=== PATIENT | female | born 1945 | race Caucasian/White ===

== ENCOUNTER 2016-12-13 05:43 | Emergency (ER) | payer MEDICARE ==
--- NOTE | 2016-12-13 06:08 | ERNOTE ---
ER Female HPI Stated Complaint: CAN'T URINATE, BLEEDING Presenting Symptoms: pelvic pain, dysuria Time Seen by Provider: 12/13/16 05:58 Source: patient, RN notes reviewed Exam Limitations: no limitations Immunizations: IMMUNIZATION HX Immunizations Up to Date Yes Allergies/Adverse Reactions: Allergies No Known Allergies Allergy (Verified 12/13/16 05:55) Home Medications: HOME MEDICATIONS Hydroxychloroquine Sulfate [Plaquenil] 400 mg PO DAILY 09/29/12 [Last Taken 10/09] Methotrexate Sodium [Methotrexate] 12.5 mg PO TU 10/03/12 [Last Taken 10/03/12] Venlafaxine HCl [Effexor Xr] 150 mg PO DAILY 01/11/14 [Last Taken Unknown] Warfarin Sodium [Coumadin] 6 mg PO DAILY 01/11/14 [Last Taken Unknown] Tiotropium Dum[place] [Spiriva] 1 cap IH DAILY 09/28/14 [Last Taken Unknown] Atorvastatin Calcium [Lipitor] 40 mg PO HS 10/23/16 [Last Taken Unknown] Biotin 1 mg PO DAILY 10/23/16 [Last Taken Unknown] Folic Acid 1 mg PO DAILY 10/23/16 [Last Taken Unknown] Topiramate [Topamax] 100 mg PO BID 10/23/16 [Last Taken Unknown] Cephalexin Monohydrate [Keflex] 1,000 mg PO BID #40 cap 12/13/16 [Last Taken Unknown] - History of Present Illness Narrative: Patient woke up this morning, and noted blood in her urine along with overwhelming urges to urinate with very poor output. She became concerned and came here for further evaluation and treatment. Timing: Present: getting worse Quality: Present: moderate, cramping, fullness Onset Location: Present: suprapubic Radiation: Present: none Activities at Onset: Present: sleep Prior Abdominal Problems: Present: none. Absent: similar symptoms Sexual [place] History: Present: single partner Modifying Factors - (Worsens): Present: urinating Associated Symptoms: Present: abdominal pain, dysuria, urinary frequency, loss of bladder control. Absent: fever/chills, diaphoresis, nausea, vomiting, polyuria, low back pain, mass, nocturia Prior Treatment: Present: recently seen. Absent: currently on antibiotics Review of Systems - Review of Systems Constitutional: Present: recent illness EYE: Present: no symptoms reported ENT: Present: no symptoms reported Respiratory: Present: no symptoms reported Cardiology: Present: no symptoms reported Gastrointestinal/Abdominal: Present: abdominal pain Genitourinary: Present: frequency, pain, dysuria, hematuria, decreased urinary output Musculoskeletal: Present: back pain - mild left flank Skin: Present: no symptoms reported Neurological: Present: no symptoms reported Endocrine: Present: no symptoms reported Hematologic/Lymphatic: Present: no symptoms reported - Patient's Past Medical History Patient History - Medical: Arthritis, Depression, Seizures, UTI'S Patient History - Cardiac/Respiratory: Coronary Heart Disease, COPD Patient History - Cancer: No Hx of Cancer Patient History - Surgical Procedures: Appendectomy, Cholecystectomy, Cardiac stent, Hysterectomy, Total Hip Replacement, Total Knee Replacement - Family History Mother Family History - Medical: , Arthritis Family History - Cardiac/Respiratory: No pertinent hx Father Family History - Medical: Family History - Cardiac/Respiratory: Coronary Heart Disease - Social History Living Situations: home Psych History: Hx of Depression Smoking Status: Former smoker Alcohol Use: rarely Drug Use: none - Immunizations Immunizations Up to Date: Yes Physical Exam - Physical Exam General Appearance: Present: wd/wn, alert, mild distress, obese, cheerful Eye Exam: Normal inspection: bilateral, PERRL: bilateral, EOMI: bilateral Ears, Nose, Throat: Present: normal ENT inspection Neck: Present: normal inspection, nontender Respiratory: Present: no respiratory distress, normal breath sounds, no accessory muscle use, chest nontender, lungs clear Cardiovascular/Chest: Present: regular rate, rhythm, no murmur, normal peripheral pulses Gastrointestinal/Abdominal: Present: normal bowel sounds, nontender, nondistended, soft, no organomegaly Back Exam: Present: normal inspection, normal range of motion, no CVA tenderness , muscle spasm Extremity Exam: Present: normal inspection, non-tender, normal range of motion, no edema Neurological Exam: Present: alert, oriented, normal mood/affect, no motor/ sensory deficits DTR: N=norm/NB=norm/brisk/A=abs/DD=dull/dimin/HC=hyperactive: Tricep (R): Absent Skin Exam: Present: normal color, warm/dry ED Progress - Results and Orders Patient's Lab Results:: I have reviewed the patient's lab results. - Vital Signs Patient's Vital Signs:: I have reviewed the patient's vital signs. Vital Signs: Vital Signs 12/13/16 05:51 Temperature 36.6 C Pulse Rate 100 Respiratory 18 Rate Blood Pressure 160/98 O2 Sat by Pulse 97 Oximetry - Progress/Reassessment Chief Complaint: Genitourinary Problem Departure Clinical Impression: Louis hematuria, Acute cystitis with hematuria - Departure Disposition: Home self-care Condition: Good Instructions: Pyelonephritis, Adult, Urinary Tract Infection, Adult, Easy-to- Read, Acute Urinary Retention, Female, [id number] Referrals: Joanna Sandoval MD [Primary Care Provider] - (3-5 days, sooner if your symptoms worsen.) Prescriptions: Cephalexin Monohydrate [Keflex] 1,000 mg PO BID #40 cap
[2016-12-13 06:15] LABS: Urine Bilirubin Negative (NEGATIVE); Urine Blood 250 /ul (NEGATIVE); Urine Ketone Negative (NEGATIVE); Urine Nitrite Negative (NEGATIVE); Urine Protein >=300 mg/dL (NEGATIVE); Urine Specific Gravity 1.025 SP.GR. (1.005-1.010); Urine Urobilinogen Normal (NORMAL)
[2016-12-13 06:19] LABS: Urine Appearance Turbid; Urine Color Red
[2016-12-13 06:20] LABS: Urine Bacteria 1+; Urine RBC >50 /hpf (0-5)
[2016-12-13 06:29] LABS: Hematocrit 40.9 % (37.0-47.0); Hemoglobin 13.4 gm/dL (12.5-16.0); Mean Cell Volume 92.1 fl (78-100); Mean Corpuscular Hemoglobin 30.2 pg (27-31); Mean Corpuscular Hgb Conc 32.8 g/dl (32-36); Mean Platelet Volume 8.9 fl (6.0-9.5); Neutrophil # 9.5 K/mm3 (1.3-6.0); Neutrophil % 69.5 % (42-75.0); Platelet Count 319 K/mm3 (150-450); Red Blood Count 4.44 M/mm3 (4.2-5.4); Red Cell Distribution Width 13.5 % (11.5-14.0); White Blood Count 13.7 K/mm3 (4.0-10.5)
[2016-12-13 06:37] LABS: Prothrombin Time (Patient) 28.2 Seconds (9.4-11.4)
[2016-12-13 06:40] LABS: INR 2.71 INR (0.90-1.10)
[2016-12-13 07:48] VITALS: BP 169/90
== END 2016-12-13 07:46 | disposition home or self-care (01) ==
LOC: ER 05:43
DX: N30.01 Acute cystitis with hematuria (principal)

== ENCOUNTER 2016-12-31 08:58 | Day surgery (SDC) | payer MEDICARE ==
[2016-12-31] MEDS ORDERED: LEVOFLOXACIN 500 MG TABLET PO PRN (11:22)
--- NOTE | 2016-12-31 13:23 | OR ---
Operative Report - Dictated Report Narrative: Location: Main OR Anesthesia: None Preoperative Diagnosis: Gross hematuria Postoperative Diagnosis: Same, nonspecific posterior wall bladder inflammation Procedure: #1 flexible cystoscopy with washing for cytology and culture Indications: 71-year-old female with gross hematuria and new onset pneumaturia. I have had her I believe on Levaquin she is supposed to call us and let us know what the actual antibiotic is and she has done better. CT urogram with suggestion of a possible left posterior wall bladder calcification. No evidence of diverticulitis or abscess. There is air in the bladder on CT either from infection, recent catheterization or possibly colovesical fistula although patient does not have risk factors for that. Description: Consent obtained. Placed in the dorsal lithotomy position. Prepped and draped. Time-out taken . Scope inserted into the urethra and navigated to the bladder with ease. No tumors, stones or obvious suspicious lesions. There is definitely inflammation present in the bladder i.e. a nonspecific erythema. There is no obvious fistulous tract. Truthfully looks like resolving infection however CIS can give similar appearance on occasion. No real trabeculation. Ureters normal in number and position. On retroflexion fairly normal bladder neck. Washing was obtained sent for cytology and culture. Normal urethra EBL: 0 Specimen: Washing for cytology and culture Condition: tolerate procedure Important Findings: Nonspecific erythema. No obvious tumor. No obvious colovesical fistula. Erythema represents resolving cystitis or CIS. FOLLOW UP: Cytology very important. If positive would proceed with biopsy. If infection present would definitely start prophylaxis. Next step would be formal cystoscopic evaluation with anesthesia with cystogram, retrogrades, bladder biopsy. I will see her back in [address] or [address] other with a voided urinalysis. She is having some bladder pressure not sure if this is all infection related or primary bladder overactivity.
[2016-12-31 13:42] LABS: Urine Bilirubin Negative (NEGATIVE); Urine Ketone Negative (NEGATIVE); Urine Nitrite Negative (NEGATIVE); Urine Protein Negative (NEGATIVE); Urine Specific Gravity <=1.005 SP.GR. (1.005-1.010); Urine Urobilinogen Normal (NORMAL); Urine pH 6.5 pH (5.0-7.0)
[2016-12-31 13:47] VITALS: BP 143/78
[2016-12-31 13:48] LABS: Urine Blood 5 /ul (NEGATIVE)
[2016-12-31 13:49] LABS: Urine Appearance Clear; Urine Bacteria None Seen; Urine Color Pale Yellow; Urine RBC 0-5 /hpf (0-5); Urine WBC None Seen /hpf (0-5)
== END 2016-12-31 08:59 | disposition home or self-care (01) ==
LOC: AMB 08:58
PROVIDERS: ATTEND Urology
PROC: 3E1K88X Irrigation of Genitourinary Tract using Irrigating Substance, Via Natural or Artificial Opening Endoscopic, Diagnostic (ICD-10-PCS; 2016-12-31)
PROC: 0TJB8ZZ Inspection of Bladder, Via Natural or Artificial Opening Endoscopic (ICD-10-PCS; principal; 2016-12-31 14:30)
DX: N30.91 Cystitis, unspecified with hematuria (principal); I10 Essential (primary) hypertension; E78.5 Hyperlipidemia, unspecified; I25.10 Atherosclerotic heart disease of native coronary artery without angina pectoris; K21.9 Gastro-esophageal reflux disease without esophagitis; J44.9 Chronic obstructive pulmonary disease, unspecified; F32.9 Major depressive disorder, single episode, unspecified; E66.9 Obesity, unspecified; Z68.41 Body mass index [BMI] 40.0-44.9, adult; Z87.891 Personal history of nicotine dependence